=== PATIENT | female | born 1940 | race Caucasian/White ===

== ENCOUNTER → 2016-10-03 14:22 | Emergency (ER) | payer MEDICARE, OTHER ==
[~2016-10-03 14:22] MED LIST: oxyCODONE/Acetamin 5/325 MG* TAB PO ONE
--- NOTE | 2016-10-03 16:36 | RAD ---
Indication: Right lower leg injury. 2 views of the right lower leg demonstrates no fracture. Patient is status post internal fixation of the distal fibula. There is right knee replacement. No fracture is identified. IMPRESSION: Postoperative changes of the right ankle and right knee. The right tibia and fibula are otherwise unremarkable.
--- NOTE | 2016-10-03 17:18 | RAD ---
Indication: Right leg pain and edema. Duplex Doppler sonography of the deep venous system of the right lower extremity deep venous system was performed. Bilaterally the common femoral veins appear patent and compressible. Right proximal greater saphenous vein, proximal deep femoral vein, femoral vein, popliteal vein, and posterior tibial veins appear patent and compressible. Peroneal veins are not visualized. IMPRESSION: NO EVIDENCE OF DEEP VENOUS THROMBOSIS IS IDENTIFIED. PERONEAL VEINS ARE NOT VISUALIZED.
[2016-10-03 18:14] VITALS: BP 147/74
--- NOTE | 2016-10-23 09:21 | ED ---
Lower Extremity - HPI Summary HPI Summary: Patient presents to ED with CC of right lower leg pain after a crush injury occurred several days ago. She notes to pain, worsening bruising, difficulty ambulating . Hx of blood clots. Wants to make sure she has not sustained another blood clot d/t injury. Denies blood thinners. Denies erythema or warmth to the area. There is no areas of deep lacerations to suspect infection at this time. Denies SOB, chest pain, ANDRADE or other complaints. - History of Current Complaint Chief Complaint: EDExtremityLower Stated Complaint: RT LEG LAC/PAIN Time Seen by Provider: 10/03/16 14:55 Hx Obtained From: Patient Mechanism Of Injury: Direct Blow Onset of Pain: Immediate Onset/Duration: Days Severity Initially: Moderate Severity Currently: Moderate Pain Intensity: 5 Pain Scale Used: 0-10 Numeric Timing: Constant Location: Is Discrete @ - right lower leg Character Of Pain: Aching, Throbbing Associated Signs And Symptoms: Positive: Swelling, Bruising Aggravating Factor(s): Standing, Ambulation Alleviating Factor(s): Rest Able to Bear Weight: Yes - Risk Factors Gout Risk Factors: Age Over 40 DVT Risk Factors: Negative Septic Arthritis Risk Factor: Negative - Allergies/Home Medications Allergies/Adverse Reactions: Allergies Allergy/AdvReac Type Severity Reaction Status Date / Time Codeine AdvReac Intermediate Dizziness Verified 01/21/16 11:50 PMH/Surg Hx/FS Hx/Imm Hx Previously Healthy: Yes Endocrine/Hematology History: Reports: Hx Blood Transfusions - 2011, Hx Thyroid Disease - levothyroid Denies: Hx Anticoagulant Therapy, Hx Blood Disorders, Hx Bone Marrow Disease , Hx Diabetes, Hx Systemic Lupus Erythematosus, Hx Sickle Cell Disease, Hx Anemia, Hx Unexplained Bleeding Cardiovascular History: Reports: Hx Hypercholesterolemia - "just put on Lipitor here", Hx Syncope - this hospitalization Denies: Hx Aneurysm, Hx Angina, Hx Angioplasty, Hx Auto Implanted Cardiovert Defib, Hx Cardiac Arrest, Hx Cardiomegaly, Hx Congenital Heart Disease, Hx Congestive Heart Failure, Hx Coronary Artery Disease, Hx Deep Vein Thrombosis, Hx Hypotension, Hx Hypertension, Hx Pacemaker/ICD, Hx Peripheral Vascular Disease, Hx Rheumatic Fever, Hx Valvular Heart Disease Respiratory History: Reports: Hx Seasonal Allergies Denies: Hx Asthma, Hx Chronic Bronchitis, Hx Chronic Obstructive Pulmonary Disease (COPD), Hx Cystic Fibrosis, Hx Lung Cancer, Hx Pleural Effusion, Hx Pneumonia, Hx Pulmonary Edema, Hx Pulmonary Embolism, Hx Sleep Apnea GI History: Reports: Hx Gall Bladder Disease - removed 40 years ago, Hx Gastroesophageal Reflux Disease - takes prilosc Denies: Hx Cirrhosis, Hx Crohn's Disease, Hx Diverticulosis, Hx Gastrointestinal Bleed, Hx Hiatal Hernia, Hx Irritable Bowel, Hx Jaundice, Hx Obstructive Bowel, Hx Ileostomy, Hx Pyloric Stenosis, Hx Ulcer History: Denies: Hx Acute Renal Failure, Hx Benign Prostatic Hyperplasia, Hx Chronic Renal Failure, Hx Dialysis, Hx Kidney Infection, Hx Kidney Stones Musculoskeletal History: Reports: Hx Arthritis - "in every joint of my body", Hx Bursitis, Hx Orthopedic Injury - r ankle fracture 1999 Denies: Hx Back Problems, Hx Congenital Bone Abnormalities, Hx Fibromyalgia, Hx Gout, Hx Osteoporosis, Hx Scoliosis, Hx Tendonitis Sensory History: Reports: Hx Contacts or Glasses - needs glasses to read and watch tv, Hx Vision Problem - needs glasses to read and watch tv Denies: Hx Cataracts, Hx Eye Injury, Hx Eye Prosthesis, Hx Glaucoma, Hx Macular Degeneration, Hx Deafness, Hx Hearing Aid, Hx Hearing Problem, Other Sensory Impairments Opthamlomology History: Reports: Hx Contacts or Glasses - needs glasses to read and watch tv, Hx Vision Problem - needs glasses to read and watch tv Denies: Hx Cataracts, Hx Eye Injury, Hx Eye Prosthesis, Hx Glaucoma, Hx Macular Degeneration, Other Sensory Impairments Neurological History: Reports: Hx Headaches - 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, Hx Migraine - "its been awhile" Denies: Hx Dementia, Hx Developmental Delay, Hx Seizures, Hx Spinal Cord Injury, Hx Transient Ischemic Attacks (TIA) Psychiatric History: Reports: Hx Anxiety - takes celexa, Hx Depression - takes celexa, Hx Substance Abuse - etoh Denies: Hx Attention Deficit Hyperactivity Disorder, Hx Eating Disorder, Hx Panic Disorder, Hx Post Traumatic Stress Disorder, Hx Inpatient Treatment, Hx Community Mental Health Tx, Hx Schizophrenia, Hx Bipolar Disorder, Hx Suicide Attempt, Hx of Violent Episodes Against Others, Other Psychiatric Issues/ Disorders - Cancer History Hx Chemotherapy: No Hx Radiation Therapy: No - Surgical History Surgery Procedure, Year, and Place: cholecystectomy, appendectomy, tubal ligation, ankle ORIF 1999, left knee replacement 2004, left hip replacement 2011 Hx Anesthesia Reactions: No - Immunization History Hx Pertussis Vaccination: No Immunizations Up to Date: Unable to Obtain/Confirm Infectious Disease History: No Infectious Disease History: Reports: Hx Shingles - 2011 Denies: Hx Clostridium Difficile, Hx Hepatitis, Hx Human Immunodeficiency Virus (HIV), Hx Tuberculosis, Traveled Outside the [place] in Last 30 Days - Family History Known Family History: Positive: None - Social History Occupation: Unemployed Lives: With Family Alcohol Use: Rare Alcohol Amount: 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 Hx Substance Use: No Substance Use Type: Reports: None Hx Tobacco Use: Yes Smoking Status (MU): Current Some Day Smoker Type: Cigarettes Amount Used/How Often: 1/2 PACK A WEEK Have You Smoked in the Last Year: Yes Review of Systems Constitutional: Negative Eyes: Negative Cardiovascular: Negative Gastrointestinal: Negative Positive: no symptoms reported, see HPI Positive: Arthralgia, Myalgia Positive: Bruising Neurological: Negative All Other Systems Reviewed And Are Negative: Yes Physical Exam Triage Information Reviewed: Yes Vital Signs On Initial Exam: Initial Vitals Temp Pulse Resp BP Pulse Ox 97.5 F 78 16 155/78 96 10/03/16 14:33 10/03/16 14:33 10/03/16 14:33 10/03/16 14:33 10/03/16 14:33 Vital Signs Reviewed: Yes Appearance: Positive: Well-Appearing, Well-Nourished Skin: Positive: Warm, Skin Color Reflects Adequate Perfusion, Other - bruising with slight erythema over the right lower leg s/p crush injury Head/Face: Positive: Normal Head/Face Inspection Eyes: Positive: [place], Conjunctiva Clear Neck: Positive: Supple, No Lymphadenopathy Respiratory/Lung Sounds: Positive: Clear to Auscultation, Breath Sounds Present Cardiovascular: Positive: Normal, RRR Musculoskeletal: Positive: Pain @ - right lower extremity Neurological: Positive: Sensory/Motor Intact, Alert, Oriented to Person Place, Time, Speech Normal Psychiatric: Positive: Normal, Affect/Mood Appropriate AVPU Assessment: Alert Diagnostics - Vital Signs Vital Signs Temp Pulse Resp BP Pulse Ox 10/03/16 18:13 97.5 F 62 16 147/74 10/03/16 16:08 16 10/03/16 14:33 97.5 F 78 16 155/78 96 - Laboratory Lab Statement: Any lab studies that have been ordered have been reviewed, and results considered in the medical decision making process. Lower Extremity Course/Dx - Course Course Of Treatment: bruising with slight erythema over the right lower leg s/p crush injury. lower extremity xray and US negative. patient given pain control. - Diagnoses Differential Diagnosis/HQI/PQRI: Positive: Cellulitis, Fracture (Closed), Sprain , Strain Provider Diagnoses: Contusion, lower leg Discharge - Discharge Plan Condition: Stable Disposition: HOME Prescriptions: oxyCODONE/Acetamin 5/325 MG* [Percocet 5/325 TAB*] 1 tab PO Q6H PRN #16 tab MDD 4 PRN Reason: Pain Patient Education Materials: Crush Injury (ED) Referrals: Gisella Gregory MD [Primary Care Provider] - Additional Instructions: Take ibuprofen 600mg three times daily for pain and inflammation Tkae Percoset up to 4 times daily as needed for pain Ice Elevate
== END | disposition home or self-care (01) ==
LOC: ED 14:22
DX: S89.91XA Unspecified injury of right lower leg, initial encounter (principal); F17.210 Nicotine dependence, cigarettes, uncomplicated; Z88.5 Allergy status to narcotic agent; E78.00 Pure hypercholesterolemia, unspecified; K21.9 Gastro-esophageal reflux disease without esophagitis; I69.398 Other sequelae of cerebral infarction; R51 Headache; F32.9 Major depressive disorder, single episode, unspecified; X58.XXXA Exposure to other specified factors, initial encounter; Y92.9 Unspecified place or not applicable
CPT/HCPCS: 99282; A9270-GY